=== PATIENT | male | born 1995 | race Two or more races ===

== ENCOUNTER 2022-06-11 16:00 | Emergency (ER) | payer SELFPAY ==
[~2022-06-11] VITALS: Ht 170.2 cm; Wt 65.9 kg
[2022-06-11 16:34] VITALS: BP 130/82
[2022-06-11] MEDS ORDERED: TETRACAINE HCL 0.5% OPTH(EYE) SOLN 4ML EACHEYE ONE (17:00)
[2022-06-11] MEDS ORDERED: FLUORESCEIN SOD OPTH TEST STRIP OP ONE (17:00)
[2022-06-11] MEDS ORDERED: CIP03OS RIGHTEYE (17:51)
== END 2022-06-11 18:08 | disposition home or self-care (01) ==
LOC: ER 16:00
DX: T15.11XA Foreign body in conjunctival sac, right eye, initial encounter (principal); W45.8XXA Other foreign body or object entering through skin, initial encounter; Y93.89 Activity, other specified; Y92.89 Other specified places as the place of occurrence of the external cause; Y99.8 Other external cause status
CPT/HCPCS: 65220